=== PATIENT | female | born 1995 | race Caucasian/White ===

== ENCOUNTER 2024-05-25 19:55 | Emergency (ER) | payer OTHER, SELFPAY ==
[2024-05-25 20:01] VITALS: BP 120/84; PULSE 76; RESP 16; TEMP 36.9; O2SAT 99; BMI 35.3
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
[2024-05-25 20:45] LABS: Basophils Absolute Auto 0.02 K/uL (0.00-0.30); Basophils Percent Auto 0.2 % (0.0-3.0); Eosinophils Absolute Auto 0.07 K/uL (0.00-0.50); Eosinophils Percent Auto 0.7 % (0.0-7.0); Hematocrit 40.4 % (33.0-51.0); Hemoglobin* 13.8 gm/dL (12.0-16.0); Immature Granulocytes Abs Auto 0.04 K/uL (0.00-0.30); Immature Granulocytes Pct Auto 0.4 %; Lymphocytes Percent Auto 16.7 % (20-44); Mean Corpuscular HGB Conc 34 gm/dL (32-36); Mean Corpuscular Hemoglobin 29 pg (26-34); Mean Corpuscular Volume 86 fL (80-100); Monocytes Percent Auto 5.1 % (0.0-11.0); Neutrophils Percent Auto 76.9 % (42.0-72.0); Platelet Count* 247 K/uL (140-440); Red Blood Count 4.72 m/uL (4.00-5.20); White Blood Count* 10.29 K/uL (4.50-11.00)
[2024-05-25 20:46] LABS: Slide Review Reflex No
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
[2024-05-25 21:00] LABS: Chloride* 104 mmol/L (96-114)
[2024-05-25 21:01] LABS: Potassium* 3.7 mmol/L (3.6-5.1); Sodium* 135 mmol/L (135-149)
[2024-05-25 21:03] LABS: Anion Gap 9 mEq/L (7-15); Carbon Dioxide* 22 mmol/L (20-32); Creatinine* 0.7 mg/dL (0.5-1.5); Est. Creatinine Clearance* 89.48; Estimated Glomerular Filt Rate 120 ml/min
[2024-05-25 21:04] LABS: Blood Urea Nitrogen* 9 mg/dL (5-24); Calcium* 9.6 mg/dL (8.4-10.6); Glucose* 99 mg/dL (60-115)
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
[2024-05-25] MEDS: MORPHINE 4 MG/ML INJ IVP (21:13)
== END 2024-05-25 22:18 | disposition home or self-care (01) ==
PROVIDERS: Emergency Provider Student in an Organized Health Care Education/Training Program
DX: S13.4XXA Sprain of ligaments of cervical spine, initial encounter (principal); S39.012A Strain of muscle, fascia and tendon of lower back, initial encounter; V43.52XA Car driver injured in collision with other type car in traffic accident, initial encounter
CPT/HCPCS: 36415; 70450; 71260; 72125; 73030; 74177; 80048; 84484; 85025; 93005; 96374; 99284; 99285; J2270; Q9967